=== PATIENT | female | born 1960 | race Caucasian/White ===

== ENCOUNTER 2017-09-27 10:58 | Outpatient (CLI) | payer OTHER ==
--- NOTE | 2017-09-27 12:51 | RAD ---
THREE VIEWS LEFT FOOT: 09/27/2017 HISTORY: Left foot pain. COMPARISON: None. FINDINGS: No displaced fracture or evidence of dislocation is seen. There is mild degenerative change at the f irst metatarsophalangeal joint. There is mild dorsal degenerative change involving the midfoot. The re is enthesophyte formation at the insertion of the Achilles tendon and at the origin of the plantar aponeurosis. IMPRESSION: 1. No acute fracture or evidence of dislocation. 2. Degenerative change and calcaneal spurring, as described above. POS: [facility]
--- NOTE | 2017-09-27 12:53 | RAD ---
FOUR VIEWS RIGHT KNEE: Date: 09-27-17 Comparison: None. History: Right knee pain, no history of trauma. FINDINGS: There is osteophyte formation in the region of the tibial spine. There is mild lateral compartment na rrowing and moderate medial compartment narrowing with associated osteophyte formation. There is mode rate patellofemoral joint space narrowing with posterior patellar osteophyte formation. There is enth esophyte formation at the insertion of the quadriceps tendon. There is a small knee joint effusion. There is no displaced fracture or evidence of dislocation seen. IMPRESSION: Multi-compartment osteoarthritic changes. No fracture or dislocation. A small knee joint effusion, no nspecific. POS: [facility]
== END 2017-09-27 10:59 | disposition home or self-care (01) ==
LOC: MADRAD 10:58
PROVIDERS: ATTEND Family Medicine
DX: M79.672 Pain in left foot (principal); M25.561 Pain in right knee; M17.11 Unilateral primary osteoarthritis, right knee; M19.072 Primary osteoarthritis, left ankle and foot; M77.32 Calcaneal spur, left foot

== ENCOUNTER 2018-07-28 04:15 | Emergency (ER) | payer OTHER ==
[2018-07-28] MEDS ORDERED: Benzonatate 100 MG CAP ONE (04:45)
[2018-07-28] MEDS ORDERED: Dexamethasone 4 MG TAB ONE (04:45)
[2018-07-28] MEDS ORDERED: HYDROcodone/Acetaminophen 5/325 mg Tablet ONE (04:45)
[2018-07-28] MEDS ORDERED: Oseltamivir 75 MG CAP ONE (04:46)
== END 2018-07-28 04:54 | disposition home or self-care (01) ==
LOC: MADERS 04:15
DX: J10.1 Influenza due to other identified influenza virus with other respiratory manifestations (principal); E11.40 Type 2 diabetes mellitus with diabetic neuropathy, unspecified
CPT/HCPCS: 99283; J8540

== ENCOUNTER 2018-12-17 18:45 | Emergency (ER) | payer OTHER ==
[2018-12-17] MEDS ORDERED: Acetaminophen 325 MG TAB ONE (19:57)
[2018-12-17 20:13] LABS: Bilirubin Small (Negative); Blood, Urine Trace (Negative); Clarity Cloudy (Clear); Glucose, Urine (Dipstick) Negative (Negative); Leukocyte Trace (Negative); Nitrite Negative (Negative); Protein, Urine (Dipstick) > or equal to 300 mg/dL (Neg-Trace); Urobilinogen 0.2 mg/dL (0.2-1.0)
[2018-12-17 20:21] LABS: Specific Gravity, Urine 1.034 (1.002-1.036)
[2018-12-17 20:22] LABS: Bacteria/HPF 3+ HPF (None Seen); Squamous Epithelial 21-50 HPF (0-3); Yeast-All Forms Rare HPF (None Seen)
[2018-12-17] MEDS ORDERED: Dexamethasone 10 MG/ML VIAL ONE (20:38)
[2018-12-17] MEDS ORDERED: cefTRIAXone\\ROCEPHIN 1 GM VIAL ONE (20:39)
[2018-12-17] MEDS ORDERED: Lidocaine 1% 20 ML MDV ONE (20:39)
== END 2018-12-17 21:10 | disposition home or self-care (01) ==
LOC: MADERS 18:45
DX: J02.9 Acute pharyngitis, unspecified (principal); N39.0 Urinary tract infection, site not specified; E11.40 Type 2 diabetes mellitus with diabetic neuropathy, unspecified; Z79.84 Long term (current) use of oral hypoglycemic drugs
CPT/HCPCS: 81003; 81015; 87086; 87430; 87804; 96372; J0696; J1100; J2001

== ENCOUNTER 2019-01-11 14:39 | Outpatient (CLI) | payer OTHER ==
[2019-01-11 14:51] LABS: Bilirubin Negative (Negative); Blood, Urine Negative (Negative); Clarity Clear (Clear); Glucose, Urine (Dipstick) Negative (Negative); Leukocyte Negative (Negative); Nitrite Negative (Negative); Protein, Urine (Dipstick) 30 mg/dL (Neg-Trace); Urobilinogen 0.2 mg/dL (0.2-1.0)
[2019-01-11 14:52] LABS: Specific Gravity, Urine 1.021 (1.002-1.036)
== END 2019-01-11 14:40 | disposition home or self-care (01) ==
LOC: MADLAB 14:39
PROVIDERS: ATTEND Orthopaedic Surgery
DX: Z01.812 Encounter for preprocedural laboratory examination (principal); M17.11 Unilateral primary osteoarthritis, right knee
CPT/HCPCS: 81003

== ENCOUNTER 2019-07-01 19:17 | Emergency (ER) | payer OTHER ==
[2019-07-01] MEDS ORDERED: Ibuprofen 400 MG TAB ONE (19:48)
== END 2019-07-01 20:09 | disposition home or self-care (01) ==
LOC: MADERS 19:17
DX: J11.1 Influenza due to unidentified influenza virus with other respiratory manifestations (principal); E11.40 Type 2 diabetes mellitus with diabetic neuropathy, unspecified; Z79.84 Long term (current) use of oral hypoglycemic drugs; Z79.899 Other long term (current) drug therapy; Z79.891 Long term (current) use of opiate analgesic
CPT/HCPCS: 87804; 99283

== ENCOUNTER 2020-05-19 11:07 | Outpatient (CLI) | payer OTHER ==
--- NOTE | 2020-05-19 12:03 | RAD ---
LUMBAR SPINE SERIES 5 VIEWS INCLUDING FLEXION AND EXTENSION: Date: 05/19/2020 HISTORY: Back pain. FINDINGS: The vertebral bodies are normal in height. There is marked disc narrowing at the L4-5 and L5-S1 level s. There is a spondylolisthesis of L4 on L5. On the neutral view, it is 10.0 mm. There is limited mot ion on the flexion. It increases minimally to 11.0 mm and reduces slightly to approximately 9.0 mm on the extension views. Degenerative facet changes are noted. IMPRESSION: Arthritic changes of the spine with spondylolisthesis of L4 on L5 as discussed above. POS: [facility]
== END 2020-05-19 11:08 | disposition home or self-care (01) ==
LOC: MADLAB 11:07
PROVIDERS: ATTEND Neurological Surgery
DX: M43.16 Spondylolisthesis, lumbar region (principal); M47.816 Spondylosis without myelopathy or radiculopathy, lumbar region
CPT/HCPCS: 72120

== ENCOUNTER 2020-06-17 23:28 | Emergency (ER) | payer OTHER ==
[~2020-06-17 23:28] MED LIST: Iopamidol 370 76% 100 ML VIAL ONE
[2020-06-18] MEDS ORDERED: Sodium Chloride 0.9% 1,000 ML ONE ×2 (00:09→00:39)
[2020-06-18 00:59] LABS: #Basophils 0.1 thou/uL (0.0-0.2); #Eosinphils 0.2 thou/uL (0.0-0.7); #Lymphocytes 1.5 thou/uL (1.20-3.40); #Monocytes 1.1 thou/uL (0.11-0.59); #Neutrophils 9.3 thou/uL (1.40-6.50); %Basophils 0.9 % (0.0-1.0); %Eosinophils 1.5 % (0.0-10.0); %Lymphocytes 12.6 % (21.0-51.0); %Monocytes 8.8 % (0.0-10.0); %Neutrophils 76.3 % (42.0-75.0); Anisocytosis SLIGHT = 6-15 cells (100X) (0-5/hpf); Hypochromia MODERATE=16-30 cells (100X) (0-5/hpf); MDiff Complete? YES; Platelet Morphology Comment Appears Adequate
[2020-06-18] MEDS ORDERED: Sodium Chloride 0.9% 100 ML ONE (01:05)
[2020-06-18] MEDS ORDERED: Cefepime 2 GM VIAL ONE (01:05)
[2020-06-18] MEDS ORDERED: Acetaminophen 500 MG TAB ONE (01:07)
[2020-06-18 01:12] LABS: White Blood Cell (WBC) Count 12.2 thou/uL (4.8-10.8)
[2020-06-18 01:13] LABS: Hemoglobin 6.5 g/dL (12.0-16.0); Manual Diff?? NO; Mean Corpuscular HGB CONC 30.9 g/dL (32.0-36.0); Mean Corpuscular Hemoglobin 24.8 pg (27.0-31.0); Mean Corpuscular Volume 80.2 fL (78.0-98.0); Mean Platelet Volume 80.2 fL (7.4-10.4); Platelet Count 200 thou/uL (130-400); RBC Distribution Width 13.7 % (11.5-14.5); Red Blood Cell (RBC) Count 2.61 mill/uL (4.20-5.40)
[2020-06-18 01:15] LABS: Anion Gap 12 mmol/L (10-20); BUN (Urea Nitrogen) 25 mg/dL (9.8-20.1); Calc. Creatinine Clearance 0 mL/min (70-130); Carbon Dioxide 23 mmol/L (23-31); Chloride 102 mmol/L (98-107); Estimated GFR-MDRD 40; Potassium 4.3 mmol/L (3.5-5.1); Sodium 136 mmol/L (136-145)
[2020-06-18 01:16] LABS: ALT (SGPT) 19 U/L (8-55); AST (SGOT) 29 U/L (5-34); Albumin 3.3 g/dL (3.4-4.8); Alkaline Phosphatase 78 U/L (40-110); Bilirubin, Total 0.3 mg/dL (0.2-1.2); Calcium 8.4 mg/dL (7.8-10.44); Globulin 3.4 g/dL (2.4-3.5); Glucose 133 mg/dL (80-115); Lipase 8 U/L (8-78); Protein, Total 6.7 g/dL (5.8-8.1)
[2020-06-18 01:17] LABS: Alcohol Less than 10 mg/dL (Less than 10); CK (CPK) 242 U/L (29-168); Salicylate Less than 8.0 mg/dL (15.0-30.0)
[2020-06-18 01:37] LABS: Critical Call Chemistry NOT CALLED
[2020-06-18 01:48] LABS: Bilirubin Negative (Negative); Blood, Urine Negative (Negative); Clarity Clear (Clear); Glucose, Urine (Dipstick) Negative (Negative); Ketone, Urine Negative (Negative); Leukocyte Negative (Negative); Nitrite Negative (Negative); Protein, Urine (Dipstick) 30 mg/dL (Neg-Trace); Specific Gravity, Urine 1.025 (1.005-1.030); Urobilinogen 0.2 mg/dL (Less than 2); pH, Urine 5.5 (5.0-9.0)
[2020-06-18 01:51] LABS: RBC/HPF 0-3 HPF (0-3); Squamous Epithelial 0-3 HPF (0-3); WBC/HPF 0-3 HPF (0-3)
[2020-06-18 01:52] LABS: Mucous/LPF 1+ LPF (<2+)
[2020-06-18 01:59] LABS: INR-International Normal Ratio 1.2; PTT 45.8 sec (22.9-36.1); Prothrombin Time 15.1 sec (12.0-14.7)
[2020-06-18 02:01] LABS: Amphetamine Not Detected (NotDetected); Barbiturates Screen Not Detected (NotDetected); Benzodiazepine Screen Not Detected (NotDetected); Cocaine Metabolite Screen Not Detected (NotDetected); Medtox Control Line Valid? VALID (VALID); Methadone Not Detected (NotDetected); Methamphetamine Not Detected (NotDetected); Opiate Screen Detected (NotDetected); Oxycodone Screen Not Detected (NotDetected); Phencyclidine (PCP) Not Detected (NotDetected); THC/Cannabinoid Screen Not Detected (NotDetected); Tricyclic Screen Not Detected (NotDetected)
[2020-06-18] MEDS ORDERED: Vancomycin 1.5 GRAM/300 ML BAG ONE (02:40)
--- NOTE | 2020-06-18 08:02 | CT ---
PRELIMINARY REPORT/[facility]/EMERGENCY AFTER HOURS PROCEDURE: CT abdomen and pelvis with contrast: Comparison: None Findings: Ill-defined nodular pleural thickening or patchy subpleural densities in the lower lungs. Edema around both kidneys. No hydronephrosis or symptomatic urinary calculus. Absent gallbladder. No biliary obstruction. The solid organs and vasculature are otherwise normal. No bowel obstruction, free air or diverticulit is. Cystic lesion in the left ovary measuring 2.6 cm. The uterus is absent. Normal urinary bladder. Evidence of recent lumbar spinal fixation hardware placement. Ill-defined fluid and edema in the para spinous soft tissues surrounding the surgical site. Gas in the soft tissues along the posterior eleme nts of L3-L5. No well-defined peripherally enhancing abscess. Metallic fixation hardware limits detai l. Around the surgical site in the hardware appears to be intact. Impression: Gas and ill-defined edema in the subcutaneous and deep tissue surrounding surgical site in the lumbar spine. No confirmable focal fluid collection or definite abscess within the limits of this study. Me tallic streak artifact associated with lumbar fixation hardware limits detail. The spinal canal is luciano boptimally evaluated. Correlate clinically for infection and consider follow up and further evaluatio n as indicated. The gas in the soft tissues is most likely related to the recent surgery. Gas forming infection is less likely but not excluded. There appears to be nodular pleural thickening in both lung bases 4 patchy peripheral opacity in the lungs. Pleural thickening could be related to previous inflammation or malignant pleural thickening. Consider chest evaluation and follow up if indicated. Indeterminate cystic lesion associated with the left ovary. This is abnormal in a postmenopausal fema le and could be benign or malignant. Ultrasound or MRI could be considered to further evaluate and fo llow up. ELECTRONICALLY SIGNED BY: Song Martin MD Jun 18, 2020 3:09:10 AM [employer] This report is intended for review by the ordering physician only, in accordance of law. If you recei ve this report in error, please call [facility] at [phone]. FINAL REPORT EMERGENCY AFTER HOURS CT ABDOMEN AND PELVIS WITH CONTRAST: COMPARISON: 09/09/2010. FINDINGS/IMPRESSION: I agree with the findings and impression given in the preliminary report per [facility] physici an. 1. There are postsurgical changes in the back with soft tissue stranding and air likely related to r ecent surgery. No obvious drainable fluid collection is seen. 2. There is a stable cystic structure in the left aspect of the pelvis which likely represents a lef t ovarian cyst/follicle. 3. The pleural thickening in the posterior pleura bilaterally is stable compared to the exam from 19 06. POS: [facility]
--- NOTE | 2020-06-18 08:16 | RAD ---
EXAM: Portable chest PROVIDED CLINICAL HISTORY: Fever COMPARISON: 01/24/2019 FINDINGS: Cardiac and mediastinal silhouette is within normal limits. No focal consolidation, pleural fluid or pneumothorax evident with limitations due to the supine nature of the study. Stable prominence of the pulmonary vasculature. IMPRESSION: No evidence for an acute cardiopulmonary process.
[2020-06-18 17:38] LABS: SARS-CoV-2 MS2 Positive; SARS-CoV-2 N Gene Negative; SARS-CoV-2 S Gene Negative; SARS-CoV-2 by NAA Not Detected (NotDetected); SARS-CoV-2 orf1ab Negative
== END 2020-06-18 03:12 | disposition short-term general hospital (02) ==
LOC: MADERS 23:28
DX: D64.9 Anemia, unspecified (principal); R50.82 Postprocedural fever; E11.40 Type 2 diabetes mellitus with diabetic neuropathy, unspecified; Z85.038 Personal history of other malignant neoplasm of large intestine
CPT/HCPCS: 36430; 71045; 74177; 80053; 80306; 80307; 81003; 81015; 82274; 82550; 83605; 83690; 84484; 85025; 85610; 85730; 86850; 86900; 86901; 87040; 87086; 87635; 87804; 93005; 94760; 96365; 96367; J0692; J3370; J3490; J7050; P9016; Q9967; U0003

== ENCOUNTER 2020-08-02 15:17 | Emergency (ER) | payer OTHER ==
--- NOTE | 2020-08-02 16:58 | RAD ---
Lumbar spine 2 views HISTORY: Low back pain. FINDINGS: There are 5 lumbar type vertebrae. Bilateral pedicle screws and vertical rods at the L4-5 l evel without. Hardware lucency. Other pedicles are intact. Grade 1 spondylolisthesis at the postoperative level is less than on the preoperative radiograph from 05/19/2020. Interbody fusion material overlies the disc space. Vertebral body heights are maintained. IMPRESSION : Postoperative changes at the L4-5 level. No evidence of complication. No acute abnormalities are demonstrated.
== END 2020-08-02 17:45 | disposition home or self-care (01) ==
LOC: MADERS 15:17
DX: M54.5 Low back pain (principal); E11.40 Type 2 diabetes mellitus with diabetic neuropathy, unspecified; Z85.038 Personal history of other malignant neoplasm of large intestine; W01.0XXA Fall on same level from slipping, tripping and stumbling without subsequent striking against object, initial encounter
CPT/HCPCS: 72100

== ENCOUNTER 2020-08-12 12:28 | Outpatient (CLI) | payer OTHER ==
--- NOTE | 2020-08-12 12:48 | RAD ---
EXAM: XR Lumbar Spine 2 Or 3 View PROVIDED CLINICAL HISTORY: Lumbar spondylolisthesis. History of surgery lumbar spine COMPARISON: 08/02/2020 FINDINGS: Again noted are postoperative changes at the L4-5 level with bipedicular screws and posterior rods tr ansfixing this level. Intradiscal prosthesis is present with laminectomy defect again noted. No hardware complication is seen. Persistent grade 1 anterolisthesis of L4 on L5 is identified. Vertebra l body heights are within normal limits, and there is no evidence of a fracture. Degenerative changes are again seen at the L5-S1 level. Postoperative changes of the abdomen are seen with radiopaque suture material and surgical clips over lying the right upper quadrant. Views lumbar spine are stable compared to prior exam. IMPRESSION: Stable postoperative and degenerative changes of the lumbar spine.
== END 2020-08-12 12:29 | disposition home or self-care (01) ==
LOC: MADRAD 12:28
PROVIDERS: ATTEND Nurse Practitioner Family
DX: M43.16 Spondylolisthesis, lumbar region (principal); M47.816 Spondylosis without myelopathy or radiculopathy, lumbar region; Z98.890 Other specified postprocedural states
CPT/HCPCS: 72100

== ENCOUNTER 2020-10-29 11:48 | Outpatient (CLI) | payer OTHER | END 2020-10-29 11:49 | disposition home or self-care (01) | LOC: MADRAD 11:48 | PROVIDERS: ATTEND Family Medicine | DX: R06.01 Orthopnea (principal); R06.09 Other forms of dyspnea; M79.89 Other specified soft tissue disorders | CPT/HCPCS: 71046 ==

== ENCOUNTER 2021-02-05 09:42 | Outpatient (CLI) | payer OTHER ==
[2021-02-05 10:45] LABS: ALT (SGPT) 12 U/L (8-55); AST (SGOT) 13 U/L (5-34); Alkaline Phosphatase 90 U/L (40-110); Anion Gap 15 mmol/L (10-20); BUN (Urea Nitrogen) 30 mg/dL (9.8-20.1); Bilirubin, Total 0.3 mg/dL (0.2-1.2); CKMB 2.3 ng/mL (0-6.6); Calc. Creatinine Clearance 0 mL/min (70-130); Calcium 9.5 mg/dL (7.8-10.44); Carbon Dioxide 24 mmol/L (23-31); Cardiac Risk 3.8 (Less than 4.5); Chloride 107 mmol/L (98-107); Cholesterol 213 mg/dl (< 200 Desired); Globulin 3.9 g/dL (2.4-3.5); Glucose 108 mg/dL (80-115); HDL Cholesterol 56 mg/dL (>60 Neg Risk); LDL Cholesterol, Calculated 127 mg/dL; Protein, Total 7.9 g/dL (5.8-8.1); Sodium 141 mmol/L (136-145); Triglycerides 149 mg/dL (Less than 150); Troponin I Less than 0.010 ng/mL (< 0.028)
[2021-02-05 10:56] LABS: #Basophils 0.1 thou/uL (0.0-0.2); #Eosinphils 0.2 thou/uL (0.0-0.7); #Lymphocytes 1.9 thou/uL (1.20-3.40); #Monocytes 0.5 thou/uL (0.11-0.59); #Neutrophils 3.7 thou/uL (1.40-6.50); %Basophils 1.6 % (0.0-1.0); %Eosinophils 3.5 % (0.0-10.0); %Lymphocytes 28.7 % (21.0-51.0); %Monocytes 8.3 % (0.0-10.0); %Neutrophils 57.9 % (42.0-75.0); Anisocytosis SLIGHT = 6-15 cells (100X) (0-5/hpf); Hemoglobin 11.4 g/dL (12.0-16.0); Hypochromia SLIGHT = 6-15 cells (100X) (0-5/hpf); MDiff Complete? YES; Mean Corpuscular HGB CONC 30.2 g/dL (32.0-36.0); Mean Corpuscular Hemoglobin 24.3 pg (27.0-31.0); Mean Corpuscular Volume 80.5 fL (78.0-98.0); Mean Platelet Volume 8.8 fL (7.4-10.4); Platelet Count 260 thou/uL (130-400); Platelet Morphology Comment Appears Adequate; RBC Distribution Width 15.2 % (11.5-14.5); White Blood Cell (WBC) Count 6.5 thou/uL (4.8-10.8)
[2021-02-05 17:42] LABS: Hemoglobin A1c 6.3 % (4.0-6.0)
== END 2021-02-05 09:43 | disposition home or self-care (01) ==
LOC: MADEKG 09:42
PROVIDERS: ATTEND Family Medicine
DX: R00.2 Palpitations (principal); R07.9 Chest pain, unspecified; G25.81 Restless legs syndrome; I10 Essential (primary) hypertension; E11.9 Type 2 diabetes mellitus without complications; E78.2 Mixed hyperlipidemia
CPT/HCPCS: 36415; 80053; 80061; 82553; 83036; 84443; 84484; 85025; 93005; 93010

== ENCOUNTER 2021-03-08 12:28 | Outpatient (CLI) | payer OTHER | END 2021-03-08 12:29 | disposition home or self-care (01) | LOC: MADRAD 12:28 | PROVIDERS: ATTEND Family Medicine | DX: R06.02 Shortness of breath (principal); M79.89 Other specified soft tissue disorders | CPT/HCPCS: 71046 ==

== ENCOUNTER 2021-09-22 09:46 | Emergency (ER) | payer OTHER | END 2021-09-22 11:03 | disposition home or self-care (01) | LOC: MADERS 09:46 | DX: M25.511 Pain in right shoulder (principal); E11.42 Type 2 diabetes mellitus with diabetic polyneuropathy; Z85.038 Personal history of other malignant neoplasm of large intestine; Z79.899 Other long term (current) drug therapy ==

== ENCOUNTER 2022-01-09 11:16 | Emergency (ER) | payer OTHER | END 2022-01-09 12:23 | disposition home or self-care (01) | LOC: MADERS 11:16 | DX: B34.9 Viral infection, unspecified (principal); I11.0 Hypertensive heart disease with heart failure; I50.9 Heart failure, unspecified; E78.5 Hyperlipidemia, unspecified; E78.00 Pure hypercholesterolemia, unspecified; E11.42 Type 2 diabetes mellitus with diabetic polyneuropathy; G25.81 Restless legs syndrome; Z20.822 Contact with and (suspected) exposure to COVID-19; Z85.038 Personal history of other malignant neoplasm of large intestine; Z79.82 Long term (current) use of aspirin; Z79.84 Long term (current) use of oral hypoglycemic drugs; Z79.899 Other long term (current) drug therapy | CPT/HCPCS: 99283; U0003; U0005 ==

== ENCOUNTER 2022-01-25 08:30 | Outpatient (CLI) | payer OTHER | END 2022-01-25 08:31 | disposition home or self-care (01) | LOC: MADRAD 08:30 | PROVIDERS: ATTEND Nurse Practitioner Family | DX: M25.551 Pain in right hip (principal) ==

== ENCOUNTER 2022-05-03 09:38 | Emergency (ER) | payer OTHER ==
[2022-05-03 10:16] LABS: #Basophils 0.1 thou/uL (0.0-0.2); #Eosinphils 0.2 thou/uL (0.0-0.7); #Lymphocytes 2.1 thou/uL (1.20-3.40); #Monocytes 0.6 thou/uL (0.11-0.59); #Neutrophils 5.8 thou/uL (1.40-6.50); %Eosinophils 2.2 % (0.0-10.0); %Lymphocytes 24.3 % (21.0-51.0); %Monocytes 6.3 % (0.0-10.0); %Neutrophils 66.1 % (42.0-75.0); Anisocytosis SLIGHT = 6-15 cells (100X) (0-5/hpf); Hemoglobin 8.9 g/dL (12.0-16.0); Hypochromia SLIGHT = 6-15 cells (100X) (0-5/hpf); MDiff Complete? YES; Mean Corpuscular HGB CONC 30.3 g/dL (32.0-36.0); Mean Corpuscular Hemoglobin 23.5 pg (27.0-31.0); Mean Corpuscular Volume 77.6 fL (78.0-98.0); Mean Platelet Volume 7.7 fL (7.4-10.4); Microcytosis SLIGHT = 6-15 cells (100X) (0-5/hpf); Platelet Count 301 thou/uL (130-400); Platelet Morphology Comment Appears Adequate; White Blood Cell (WBC) Count 8.8 thou/uL (4.8-10.8)
[2022-05-03 10:20] LABS: ALT (SGPT) 9 U/L (8-55); AST (SGOT) 12 U/L (5-34); Albumin 4.1 g/dL (3.4-4.8); Alkaline Phosphatase 105 U/L (40-110); Anion Gap 17 mmol/L (10-20); BUN (Urea Nitrogen) 52 mg/dL (9.8-20.1); Bilirubin, Total 0.3 mg/dL (0.2-1.2); Calc. Creatinine Clearance 0 mL/min (70-130); Calcium 9.5 mg/dL (7.8-10.44); Carbon Dioxide 25 mmol/L (23-31); Chloride 103 mmol/L (98-107); Estimated GFR 27; Globulin 3.7 g/dL (2.4-3.5); Glucose 138 mg/dL (80-115); Potassium 3.8 mmol/L (3.5-5.1); Protein, Total 7.8 g/dL (5.8-8.1); Sodium 141 mmol/L (136-145)
[2022-05-03] MEDS ORDERED: Metoclopramide HCl 10 MG/2 ML VIAL ONE (10:23)
[2022-05-03] MEDS ORDERED: Aspirin Chewable 81 MG TAB ONE (10:59)
[2022-05-03 12:30] LABS: Troponin I Less than 0.010 ng/mL (< 0.028)
== END 2022-05-03 13:00 | disposition home or self-care (01) ==
LOC: MADERS 09:38
DX: R07.2 Precordial pain (principal); R51.9 Headache, unspecified; N28.9 Disorder of kidney and ureter, unspecified; G25.81 Restless legs syndrome; E78.00 Pure hypercholesterolemia, unspecified; I11.0 Hypertensive heart disease with heart failure; I50.9 Heart failure, unspecified; E11.9 Type 2 diabetes mellitus without complications; Z85.038 Personal history of other malignant neoplasm of large intestine; Z79.84 Long term (current) use of oral hypoglycemic drugs; Z79.82 Long term (current) use of aspirin; Z79.899 Other long term (current) drug therapy
CPT/HCPCS: 71045; 80053; 83880; 84484; 85025; 93005; 96374; J2765

== ENCOUNTER 2022-09-18 14:02 | Emergency (ER) | payer OTHER ==
[~2022-09-18 14:02] MED LIST changes: -Iopamidol 370 76% 100 ML VIAL ONE; +Iopamidol 370 76% 125 ML VIAL FS ONE; +Sodium Chloride 0.9% 100 ML BAG ONE
[2022-09-18 14:40] LABS: ALT (SGPT) 10 U/L (8-55); AST (SGOT) 13 U/L (5-34); Albumin 3.9 g/dL (3.4-4.8); Alkaline Phosphatase 91 U/L (40-110); Anion Gap 13 mmol/L (10-20); BUN (Urea Nitrogen) 27 mg/dL (9.8-20.1); Bilirubin, Total 0.2 mg/dL (0.2-1.2); Calc. Creatinine Clearance 0 mL/min (70-130); Calcium 9.4 mg/dL (7.8-10.44); Carbon Dioxide 24 mmol/L (23-31); Chloride 104 mmol/L (98-107); Estimated GFR 37; Globulin 3.4 g/dL (2.4-3.5); Glucose 129 mg/dL (80-115); Potassium 4.5 mmol/L (3.5-5.1); Protein, Total 7.3 g/dL (5.8-8.1); Sodium 136 mmol/L (136-145)
[2022-09-18 14:46] LABS: #Basophils 0.1 thou/uL (0.0-0.2); #Eosinphils 0.1 thou/uL (0.0-0.7); #Lymphocytes 1.9 thou/uL (1.20-3.40); #Monocytes 0.6 thou/uL (0.11-0.59); #Neutrophils 5.1 thou/uL (1.40-6.50); %Basophils 1.1 % (0.0-1.0); %Eosinophils 1.6 % (0.0-10.0); %Lymphocytes 24.5 % (21.0-51.0); %Monocytes 7.7 % (0.0-10.0); %Neutrophils 65.1 % (42.0-75.0); Hemoglobin 7.1 g/dL (12.0-16.0); Hypochromia SLIGHT = 6-15 cells (100X) (0-5/hpf); MDiff Complete? YES; Mean Corpuscular HGB CONC 30.8 g/dL (32.0-36.0); Mean Corpuscular Hemoglobin 21.2 pg (27.0-31.0); Mean Corpuscular Volume 68.7 fl (78.0-98.0); Mean Platelet Volume 6.8 fL (7.4-10.4); Microcytosis SLIGHT = 6-15 cells (100X) (0-5/hpf); Platelet Count 340 10x3/uL (130-400); Platelet Morphology Comment Appears Adequate; RBC Distribution Width 14.9 % (11.5-14.5); Red Blood Cell (RBC) Count 3.36 mill/uL (4.20-5.40); White Blood Cell (WBC) Count 7.8 10x3/uL (4.8-10.8)
[2022-09-18] MEDS ORDERED: Sodium Chloride 0.9% 1,000 ML ONE (15:16)
[2022-09-18 16:54] LABS: SARS-CoV-2 NAA Rapid Test Not Detected (NotDetected)
[2022-09-18] MEDS ORDERED: Ipratropium/Albuterol 3 ML NEB ONE (17:20)
== END 2022-09-18 18:34 | disposition short-term general hospital (02) ==
LOC: MADERS 14:02
DX: R07.89 Other chest pain (principal); D64.9 Anemia, unspecified; E78.00 Pure hypercholesterolemia, unspecified; I10 Essential (primary) hypertension; E11.9 Type 2 diabetes mellitus without complications; Z20.822 Contact with and (suspected) exposure to COVID-19; Z87.891 Personal history of nicotine dependence
CPT/HCPCS: 71045; 71275; 80053; 83880; 84484; 85025; 85379; 93005; 94640; 94760; 96360; 96361; J7050; J7620; Q9967; U0002

== ENCOUNTER 2022-11-21 10:29 | Emergency (ER) | payer OTHER ==
[2022-11-21] MEDS ORDERED: Orphenadrine Citrate 60 MG/2 ML VIAL ONE (11:25)
[2022-11-21] MEDS ORDERED: HYDROcodone/Acetaminophen 5/325 mg Tablet ONE (12:19)
== END 2022-11-21 12:30 | disposition home or self-care (01) ==
LOC: MADERS 10:29
DX: M50.31 Other cervical disc degeneration, high cervical region (principal); I11.0 Hypertensive heart disease with heart failure; I50.9 Heart failure, unspecified; E11.42 Type 2 diabetes mellitus with diabetic polyneuropathy; K58.9 Irritable bowel syndrome, unspecified; E78.00 Pure hypercholesterolemia, unspecified; Z87.891 Personal history of nicotine dependence; Z79.899 Other long term (current) drug therapy; Z85.038 Personal history of other malignant neoplasm of large intestine
CPT/HCPCS: 72125; 96372; J2360

== ENCOUNTER 2022-12-12 12:39 | Emergency (ER) | payer OTHER ==
[2022-12-12 14:33] LABS: #Basophils 0.1 thou/uL (0.0-0.2); #Eosinphils 0.1 thou/uL (0.0-0.7); #Lymphocytes 1.6 thou/uL (1.20-3.40); #Monocytes 0.7 thou/uL (0.11-0.59); #Neutrophils 6.1 thou/uL (1.40-6.50); %Eosinophils 0.8 % (0.0-10.0); %Lymphocytes 19.1 % (21.0-51.0); %Neutrophils 71.1 % (42.0-75.0); Hemoglobin 11.2 g/dL (12.0-16.0); Mean Corpuscular HGB CONC 31.9 g/dL (32.0-36.0); Mean Corpuscular Hemoglobin 25.5 pg (27.0-31.0); Mean Platelet Volume 8.9 fL (7.4-10.4); Platelet Count 248 10x3/uL (130-400); Red Blood Cell (RBC) Count 4.39 mill/uL (4.20-5.40); White Blood Cell (WBC) Count 8.6 10x3/uL (4.8-10.8)
[2022-12-12 14:49] LABS: ALT (SGPT) 23 U/L (8-55); AST (SGOT) 24 U/L (5-34); Albumin 4.2 g/dL (3.4-4.8); Alkaline Phosphatase 84 U/L (40-110); Anion Gap 17 mmol/L (10-20); BUN (Urea Nitrogen) 38 mg/dL (9.8-20.1); Bilirubin, Total 0.5 mg/dL (0.2-1.2); Calc. Creatinine Clearance 0 mL/min (70-130); Calcium 10.5 mg/dL (7.8-10.44); Carbon Dioxide 29 mmol/L (23-31); Chloride 97 mmol/L (98-107); Estimated GFR 35; Globulin 3.7 g/dL (2.4-3.5); Glucose 143 mg/dL (80-115); Magnesium 1.9 mg/dL (1.6-2.6); Potassium 3.1 mmol/L (3.5-5.1); Protein, Total 7.9 g/dL (5.8-8.1); Sodium 140 mmol/L (136-145)
[2022-12-12] MEDS ORDERED: Potassium Chloride 20 MEQ TAB ONE ×2 (15:18)
[2022-12-12] MEDS ORDERED: Sodium Chloride 0.9% 1,000 ML ONE (15:18)
== END 2022-12-12 16:20 | disposition home or self-care (01) ==
LOC: MADERS 12:39
DX: E87.6 Hypokalemia (principal); R07.9 Chest pain, unspecified; R51.9 Headache, unspecified; R11.0 Nausea; T38.3X5A Adverse effect of insulin and oral hypoglycemic [antidiabetic] drugs, initial encounter; E11.9 Type 2 diabetes mellitus without complications; E78.5 Hyperlipidemia, unspecified; I11.0 Hypertensive heart disease with heart failure; I50.9 Heart failure, unspecified; Z87.891 Personal history of nicotine dependence; Z79.84 Long term (current) use of oral hypoglycemic drugs
CPT/HCPCS: 71045; 80053; 83735; 83880; 84484; 85025; 93005; 96360; J7050

== ENCOUNTER 2023-04-18 09:20 | Outpatient (CLI) | payer OTHER ==
[2023-04-18 09:44] LABS: #Basophils 0.1 thou/uL (0.0-0.2); #Eosinphils 0.1 thou/uL (0.0-0.7); #Lymphocytes 1.4 thou/uL (1.20-3.40); #Monocytes 0.5 thou/uL (0.11-0.59); #Neutrophils 5.1 thou/uL (1.40-6.50); %Basophils 1.1 % (0.0-1.0); %Lymphocytes 19.7 % (21.0-51.0); %Monocytes 7.1 % (0.0-10.0); %Neutrophils 70.2 % (42.0-75.0); Hematocrit 26.5 % (36.0-47.0); Hemoglobin 8.2 g/dL (12.0-16.0); Mean Corpuscular HGB CONC 31.1 g/dL (32.0-36.0); Mean Corpuscular Hemoglobin 23.2 pg (27.0-31.0); Mean Corpuscular Volume 74.8 fl (78.0-98.0); Mean Platelet Volume 8.3 fL (7.4-10.4); Platelet Count 249 10x3/uL (130-400); Red Blood Cell (RBC) Count 3.54 mill/uL (4.20-5.40); White Blood Cell (WBC) Count 7.3 10x3/uL (4.8-10.8)
[2023-04-18 10:00] LABS: ALT (SGPT) 38 U/L (8-55); AST (SGOT) 21 U/L (5-34); Albumin 4.2 g/dL (3.4-4.8); Alkaline Phosphatase 104 U/L (40-110); Anion Gap 18 mmol/L (10-20); BUN (Urea Nitrogen) 38 mg/dL (9.8-20.1); Bilirubin, Total 0.4 mg/dL (0.2-1.2); Calc. Creatinine Clearance 0 mL/min (70-130); Calcium 9.4 mg/dL (7.8-10.44); Carbon Dioxide 18 mmol/L (23-31); Chloride 108 mmol/L (98-107); Estimated GFR 27; Globulin 3.5 g/dL (2.4-3.5); Glucose 98 mg/dL (80-115); Magnesium 1.8 mg/dL (1.6-2.6); Potassium 4.9 mmol/L (3.5-5.1); Protein, Total 7.7 g/dL (5.8-8.1); Sodium 139 mmol/L (136-145)
[2023-04-18 10:33] LABS: Anisocytosis SLIGHT = 6-15 cells (100X) (0-5/hpf); Platelet Adequacy Comment Appears Adequate
== END 2023-04-18 09:21 | disposition home or self-care (01) ==
LOC: MADRAD 09:20
PROVIDERS: ATTEND Internal Medicine
DX: J45.50 Severe persistent asthma, uncomplicated (principal); E11.9 Type 2 diabetes mellitus without complications; I10 Essential (primary) hypertension; D50.9 Iron deficiency anemia, unspecified
CPT/HCPCS: 36415; 70220; 71046; 80053; 83735; 85025

== ENCOUNTER 2025-03-27 20:16 | Emergency (ER) | payer OTHER ==
[2025-03-27] MEDS ORDERED: Benzonatate 100 MG CAP ONE (21:17)
[2025-03-27] MEDS ORDERED: predniSONE 20 MG TAB ONE (21:17)
[2025-03-27] MEDS ORDERED: Acetaminophen 500 MG TAB ONE (21:17)
[2025-03-27] MEDS ORDERED: Azithromycin 250 MG TAB ONE (21:23)
[2025-03-27 21:39] LABS: #Basophils 0.1 thou/uL (0.0-0.2); #Eosinophils 0.3 thou/uL (0.0-0.7); #Lymphocytes 2.3 thou/uL (1.20-3.40); #Monocytes 0.9 thou/uL (0.11-0.59); #Neutrophils 6.9 thou/uL (1.40-6.50); %Basophils 0.9 % (0.0-1.0); %Eosinophils 2.9 % (0.0-10.0); %Lymphocytes 21.6 % (21.0-51.0); %Monocytes 8.8 % (0.0-10.0); %Neutrophils 65.7 % (42.0-75.0); Hematocrit 32.4 % (36.0-47.0); Hemoglobin 10.3 g/dL (12.0-16.0); Mean Corpuscular Hemoglobin 25.3 pg (27.0-31.0); Mean Corpuscular Volume 79.5 fl (78.0-98.0); Platelet Count 233 10x3/uL (130-400); Red Blood Cell (RBC) Count 4.08 mill/uL (4.20-5.40); White Blood Cell (WBC) Count 10.5 10x3/uL (4.8-10.8)
[2025-03-27 21:58] LABS: ALT (SGPT) 14 U/L (Less than 34); AST (SGOT) 28 U/L (11-34); Albumin 3.7 g/dL (3.1-4.5); Alkaline Phosphatase 105 U/L (40-110); Anion Gap 17 mmol/L (10-20); BUN (Urea Nitrogen) 22 mg/dL (9.8-20.1); Bilirubin, Total 0.4 mg/dL (0.3-1.2); Calc. Creatinine Clearance 0 mL/min (70-130); Calcium 9.3 mg/dL (7.8-10.44); Carbon Dioxide 24 mmol/L (23-31); Chloride 105 mmol/L (98-107); Globulin 4.1 g/dL (2.4-3.5); Glucose 179 mg/dL (80-115); Potassium 5.3 mmol/L (3.5-5.1); Sodium 141 mmol/L (136-145); Troponin I Less than 0.010 ng/mL (< 0.028)
== END 2025-03-27 22:20 | disposition home or self-care (01) ==
LOC: MADERS 20:16
DX: J44.1 Chronic obstructive pulmonary disease with (acute) exacerbation (principal); J45.901 Unspecified asthma with (acute) exacerbation; E87.5 Hyperkalemia; J06.9 Acute upper respiratory infection, unspecified; B97.89 Other viral agents as the cause of diseases classified elsewhere; E11.9 Type 2 diabetes mellitus without complications; E78.5 Hyperlipidemia, unspecified; I11.0 Hypertensive heart disease with heart failure; I50.9 Heart failure, unspecified; Z87.891 Personal history of nicotine dependence
CPT/HCPCS: 71045; 80053; 83605; 83880; 84484; 85025; 87400; 87426; 93005; J7512; J7620